=== PATIENT | male | born 1960 | race African-American/Black ===

== ENCOUNTER 2020-11-25 18:04 | Emergency (ER) | payer OTHER ==
[~2020-11-25] VITALS: Ht 162.6 cm; Wt 81.2 kg
--- NOTE | 2020-11-25 18:06 | NUR ---
[id number], CAME TO ER C/O EPIGASTRIC PAIN EVERYTIME THE PATIENT EATS FOR 5 DAYS. SKIN IS WARM AND NON DIAPHORETIC. AWAITING MD FOR EVAL.
--- NOTE | 2020-11-25 18:44 | NUR ---
IV started and blood drawned and sent to lab.
[2020-11-25 18:46] LABS: HEMOGLOBIN 14.1 g/dL (13.5-17.5); MEAN CORPUSCULAR VOLUME 90 fL (80-96); MONOCYTES # (AUTO) 0.6 K/uL (0.1-1.30); WHITE BLOOD COUNT (AUTO) 9.1 K/uL (4.3-11.0)
[2020-11-25 18:51] LABS: BASOPHILS % (AUTO) 0.3 % (0.0-2.0); HEMATOCRIT 42 % (39-51); LYMPHOCYTES % (AUTO) 22.5 % (20.0-44.0); MEAN CORPUSCULAR HGB CONC 34 g/dl (31.0-36.0); MONOCYTES % (AUTO) 6.7 % (2.0-12.0); NEUTROPHILS # (AUTO) 2.9 K/uL (1.8-8.9); NEUTROPHILS % (AUTO) 32.2 % (43.0-81.0); PLATELET COUNT (AUTO) 148 K/uL (150-450); RED BLOOD CELL COUNT(AUTO) 4.63 MIL/uL (4.5-6.0)
[2020-11-25 18:52] LABS: EOSINOPHILS % (AUTO) 38.3 % (0.0-6.0)
[2020-11-25 18:58] LABS: CALCIUM, SERUM 8.9 mg/dL (8.5-10.1); POTASSIUM 3.7 mmol/L (3.5-5.1)
[2020-11-25] MEDS ORDERED: PANTOPRAZOLE 40 MG VIAL ONE (18:59)
[2020-11-25] MEDS ORDERED: PANTOPRAZOLE 40 MG VIAL IV ONE (19:00)
[2020-11-25 19:12] LABS: ALBUMIN 3.8 g/dL (3.4-5.0); BILIRUBIN,DIRECT 0.1 mg/dL (0.0-0.2); BILIRUBIN,TOTAL 0.3 mg/dL (0.2-1.0); TOTAL PROTEIN, SERUM 7.4 g/dL (6.4-8.2)
[2020-11-25] MEDS ORDERED: IBUP-1955 PO (20:22)
[2020-11-25] MEDS ORDERED: PANT20TA2 PO (20:22)
[2020-11-25 20:24] LABS: BAND % (MANUAL) 1 % (0.0-5.0); EOSINOPHILS % (MANUAL) 37 % (0-4); LYMPHOCYTES % (MANUAL) 16 % (16-48); MONOCYTES % (MANUAL) 6 % (0-11.0); NEUTROPHILS % (MANUAL) 40 (42-76)
[2020-11-25 20:54] VITALS: BP 138/76
--- NOTE | 2020-11-25 20:54 | NUR ---
Patient discharged to home in stable condition.RX and Written and verbal after care instructions given. Patient verbalizes understanding of instruction.
== END 2020-11-25 20:55 | disposition home or self-care (01) ==
LOC: ER 18:24
DX: K80.50 Calculus of bile duct without cholangitis or cholecystitis without obstruction (principal); K76.0 Fatty (change of) liver, not elsewhere classified; K21.9 Gastro-esophageal reflux disease without esophagitis; E78.00 Pure hypercholesterolemia, unspecified; R94.31 Abnormal electrocardiogram [ECG] [EKG]; Z79.899 Other long term (current) drug therapy
CPT/HCPCS: 36415; 76705; 80048; 80076; 83690; 85007; 85025; 93005; 96374; 99285; C9113